=== PATIENT | female | born 1955 | race Caucasian/White ===

== ENCOUNTER 2022-05-08 17:42 | Inpatient (IN) ==
[2022-05-08] MEDS ORDERED: Ondansetron 4 MG/2 ML VIAL IVP PRN (22:59)
[2022-05-08] MEDS ORDERED: Acetaminophen 325 MG TABLET PO PRN (22:59)
[2022-05-08] MEDS ORDERED: Melatonin 3 MG TABLET PO PRN (22:59)
[2022-05-08] MEDS ORDERED: Naloxone 0.4 MG/ML INJ IVP PRN (22:59)
[2022-05-09 02:04] LABS: Hematocrit 44.4 % (35.3-44.9); Hemoglobin 14.4 g/dL (11.5-15.4); Mean Corpuscular HGB Conc 32.4 g/dL (31.6-35.5); Mean Corpuscular Hemoglobin 29.6 pg (28.0-33.3); Mean Corpuscular Volume 91.2 fL (83.0-100.0); Platelet Count 322 K/mcL (140-400); Red Blood Count 4.87 M/mcL (3.82-4.97); Red Cell Distribution Width 14.6 % (11.5-14.5)
[2022-05-09 02:09] LABS: Potassium 4.1 mEq/L (3.5-5.1)
[2022-05-09] MEDS ORDERED: Acetaminophen IV 1,000 MG/100 ML BAG IVPB ONE (04:18)
[2022-05-09] MEDS ORDERED: *HR* Metoprolol 5 MG/5 ML VIAL IVP ONE ×2 (04:22→05:43)
[2022-05-09 05:06] LABS: Influenza A PCR Negative (Negative); Influenza B PCR Negative (Negative); Resp. Syncytial Virus PCR Negative (Negative)
[2022-05-09] MEDS ORDERED: Acetaminophen IV 500 MG/50 ML BAG IVPB ONE (05:08)
[2022-05-09 05:15] LABS: Bilirubin,Urine Negative (Negative); Blood,Urine Negative (Negative); Clarity,Urine Clear (Clear); Color,Urine Light-Yellow (Yellow); Glucose,Urine (UA) >=1000 mg/dL (Normal); Ketones,Urine Negative (Negative); Leukocyte Esterase,Urine Negative (Negative); Mucus,Urine Few per lpf (None-Few); Nitrite,Urine Negative (Negative); Protein,Urine Trace mg/dL (Neg-Trace); RBC,Urine 0-3 per hpf (0-3); Specific Gravity,Urine > 1.030 (1.010-1.025); Squamous Epithelial Cell,Urine Few per hpf (None-Few); Urobilinogen,Urine Normal (Normal); WBC,Urine 0-3 per hpf (0-3)
[2022-05-09 05:25] LABS: SARS-CoV-2 by PCR (In House) Positive (Negative)
[2022-05-09] MEDS ORDERED: *HR* Dextrose 50 % in Water (Syg) 50 ML SYRINGE IVP PRN (05:34)
[2022-05-09] MEDS ORDERED: Dextrose Gel 15 GM/37.5 ML TUBE PO PRN ×2 (05:34)
[2022-05-09] MEDS ORDERED: D5% in Water 1,000 ML IVC PRN (05:34)
[2022-05-09 05:48] LABS: Estimated Average Glucose 128 mg/dl; Hemoglobin A1C 6.1 %
[2022-05-09] MEDS: *HR* Heparin 5,000 UNIT/ML VIAL SQ SCH ×2 (05:59→16:55)
[2022-05-09 06:01] LABS: Albumin 4.1 g/dL (3.5-5.7); Albumin/Globulin Ratio 1.2 (1.1-2.2); Bilirubin,Direct 0.3 mg/dL (0.0-0.2); Bilirubin,Indirect 0.5 mg/dL (0.0-1.0); Bilirubin,Total 0.8 mg/dL (0.3-1.0); Globulin 3.3 g/dL (2.4-3.5); Magnesium 1.6 mg/dL (1.6-2.6); Total Protein 7.4 g/dL (6.4-8.9)
[2022-05-09] MEDS: Insulin LISPRO 300 UNITS/3 ML VIAL SUBQ SCH ×4 (06:03→23:25)
[2022-05-09 06:04] LABS: Troponin I 0.04 ng/mL (< 0.04)
[2022-05-09 06:13] LABS: Thyroid Stimulating Hormone 1.094 mcIU/mL (0.340-5.600)
[2022-05-09] MEDS: allopurinoL 300 MG TABLET PO SCH (07:42)
[2022-05-09] MEDS: lisinopriL 20 MG TABLET PO SCH (07:42)
[2022-05-09] MEDS: Aspirin Enteric Coated 81 MG Tablet PO SCH (07:42)
[2022-05-09] MEDS: Furosemide 20 MG TABLET PO SCH (07:42)
[2022-05-09] MEDS: Gabapentin 300 MG CAPSULE PO SCH ×3 (07:42→21:25)
[2022-05-09] MEDS: Azithromycin 250 MG TABLET PO SCH (16:53)
[2022-05-09] MEDS: dexAMETHasone 4 MG TABLET PO SCH (16:54)
[2022-05-09] MEDS: cefTRIAXone 1,000 MG in Water for inj. (sterile) 10 ML IVP SCH (16:54)
[2022-05-09] MEDS ORDERED: *HR* Heparin 5,000 UNIT/ML VIAL IVP ONE (18:39)
[2022-05-09] MEDS ORDERED: *HR* Heparin 5,000 UNIT/ML VIAL IVP PRN (18:39)
[2022-05-09 19:12] LABS: Hemoglobin 13.7 g/dL (11.5-15.4); Mean Corpuscular HGB Conc 33.4 g/dL (31.6-35.5); Mean Corpuscular Hemoglobin 29.8 pg (28.0-33.3); Mean Corpuscular Volume 89.3 fL (83.0-100.0); Platelet Count 239 K/mcL (140-400); Red Blood Count 4.59 M/mcL (3.82-4.97); Red Cell Distribution Width 14.6 % (11.5-14.5)
[2022-05-09 19:18] LABS: Heparin anti-factor XA UFH < 0.04 IU/mL (0.30-0.70)
[2022-05-09 19:19] LABS: INR 1.2; Prothrombin Time 13.9 Seconds (9.4-12.1)
[2022-05-09] MEDS: Heparin 25,000UNIT/250ML 1/2NS 25,000 UNIT/250 ML IV.SOLN IVC SCH (19:30)
[2022-05-10 02:41] LABS: Basophils % 0.2 %; Hematocrit 37.5 % (35.3-44.9); Hemoglobin 12.3 g/dL (11.5-15.4); Immature Granulocytes % 0.3 % (0-4); Lymphocytes # 1.1 K/mcL (0.6-4.6); Lymphocytes % 8.5 %; Mean Corpuscular HGB Conc 32.8 g/dL (31.6-35.5); Mean Corpuscular Hemoglobin 29.6 pg (28.0-33.3); Mean Corpuscular Volume 90.1 fL (83.0-100.0); Mean Platelet Volume 11.9 fL (9.4-12.4); Monocytes # 0.4 K/mcL (0.0-1.3); Monocytes % 2.8 %; Neutrophils # 11.1 K/mcL (1.6-8.9); Platelet Count 222 K/mcL (140-400); Red Blood Count 4.16 M/mcL (3.82-4.97); Red Cell Distribution Width 14.5 % (11.5-14.5); Segmented Neutrophils % 88.2 %; White Blood Count 12.6 K/mcL (4.3-11.1)
[2022-05-10 03:02] LABS: Albumin 3.7 g/dL (3.5-5.7); Albumin/Globulin Ratio 1.1 (1.1-2.2); Bilirubin,Total 0.5 mg/dL (0.3-1.0); Calcium 9.8 mg/dL (8.6-10.3); Globulin 3.3 g/dL (2.4-3.5); Potassium 4.2 mEq/L (3.5-5.1)
[2022-05-10] MEDS: *HR* Heparin 5,000 UNIT/ML VIAL IVP PRN ×2 (03:37→10:54)
[2022-05-10] MEDS: Insulin LISPRO 300 UNITS/3 ML VIAL SUBQ SCH ×3 (05:27→17:19)
[2022-05-10] MEDS: cefTRIAXone 1,000 MG in Water for inj. (sterile) 10 ML IVP SCH (08:18)
[2022-05-10] MEDS: Gabapentin 300 MG CAPSULE PO SCH ×3 (08:18→20:09)
[2022-05-10] MEDS: lisinopriL 20 MG TABLET PO SCH (08:18)
[2022-05-10] MEDS: Aspirin Enteric Coated 81 MG Tablet PO SCH (08:18)
[2022-05-10] MEDS: dexAMETHasone 4 MG TABLET PO SCH (08:18)
[2022-05-10] MEDS: allopurinoL 300 MG TABLET PO SCH (08:19)
[2022-05-10] MEDS: Furosemide 20 MG TABLET PO SCH (08:19)
[2022-05-10] MEDS: Azithromycin 250 MG TABLET PO SCH (15:09)
[2022-05-10] MEDS: Heparin 25,000UNIT/250ML 1/2NS 25,000 UNIT/250 ML IV.SOLN IVC SCH (17:20)
[2022-05-11] MEDS: Insulin LISPRO 300 UNITS/3 ML VIAL SUBQ SCH ×2 (00:48→06:21)
[2022-05-11 03:31] LABS: Basophils % 0.1 %; Hematocrit 37.4 % (35.3-44.9); Hemoglobin 12.2 g/dL (11.5-15.4); Immature Granulocytes % 0.5 % (0-4); Lymphocytes # 1.3 K/mcL (0.6-4.6); Lymphocytes % 10.3 %; Mean Corpuscular HGB Conc 32.6 g/dL (31.6-35.5); Mean Corpuscular Hemoglobin 29.4 pg (28.0-33.3); Mean Corpuscular Volume 90.1 fL (83.0-100.0); Mean Platelet Volume 11.4 fL (9.4-12.4); Monocytes # 0.7 K/mcL (0.0-1.3); Monocytes % 5.2 %; Neutrophils # 10.6 K/mcL (1.6-8.9); Platelet Count 219 K/mcL (140-400); Red Blood Count 4.15 M/mcL (3.82-4.97); Red Cell Distribution Width 14.6 % (11.5-14.5); Segmented Neutrophils % 83.9 %; White Blood Count 12.6 K/mcL (4.3-11.1)
[2022-05-11 04:01] LABS: Calcium 9.5 mg/dL (8.6-10.3); Potassium 4.4 mEq/L (3.5-5.1)
[2022-05-11 07:36] VITALS: BP 133/85; PULSE 65; TEMP 97.4; O2SAT 96
[2022-05-11] MEDS: dexAMETHasone 4 MG TABLET PO SCH (08:57)
[2022-05-11] MEDS: cefTRIAXone 1,000 MG in Water for inj. (sterile) 10 ML IVP SCH (08:57)
[2022-05-11] MEDS: allopurinoL 300 MG TABLET PO SCH (08:57)
[2022-05-11] MEDS: lisinopriL 20 MG TABLET PO SCH (08:57)
[2022-05-11] MEDS: Gabapentin 300 MG CAPSULE PO SCH (08:57)
[2022-05-11] MEDS: Aspirin Enteric Coated 81 MG Tablet PO SCH (08:58)
[2022-05-11] MEDS: Furosemide 20 MG TABLET PO SCH (08:58)
[2022-05-11] MEDS: Heparin 25,000UNIT/250ML 1/2NS 25,000 UNIT/250 ML IV.SOLN IVC SCH (09:53)
== END 2022-05-11 13:01 | disposition home or self-care (01) | DRG 871 ==
LOC: 3BNU
PROVIDERS: ADMIT Internal Medicine; ATTEND Internal Medicine